=== PATIENT | female | born 1955 | race Caucasian/White ===

== ENCOUNTER → 2016-12-03 | Outpatient (CLI) | payer BC ==
--- NOTE | 2016-12-03 13:45 | DIAGNOSTIC IMAGING REPORT ---
LEFT RIBS UNILATERAL WITH PA CHEST CLINICAL HISTORY: LEFT POSTERIOR RIB PAIN pain COMPARISON STUDY: None FINDINGS: Cortical fracture left ninth rib. All remaining ribs are unremarkable. No evidence pneumothorax. IMPRESSION: Cortical fracture left ninth rib. Lungs are clear. Electronically signed by: Payam Castellon M.D. 12/03/2016 1:43 PM Dictated Date/Time: 12/03/2016 1:42 PM
--- NOTE | 2016-12-03 13:46 | DIAGNOSTIC IMAGING REPORT ---
LUMBAR SPINE 5 VIEWS HISTORY: Pain FLANK PAIN COMPARISON: None. FINDINGS: There is no fracture. No subluxation. Significant degenerative disc changes throughout. IMPRESSION: Significant degenerative disc change. No acute process. Electronically signed by: Payam Castellon M.D. 12/03/2016 1:44 PM Dictated Date/Time: 12/03/2016 1:44 PM
--- NOTE | 2016-12-03 13:46 | DIAGNOSTIC IMAGING REPORT ---
THORACIC SPINE 3 VIEWS HISTORY: Left FLANK PAIN COMPARISON: None. FINDINGS: There is no fracture. No subluxation. Minimal dextroscoliosis of the thoracic spine. Paraspinal soft tissues are unremarkable. Mild disc space narrowing within the mid to lower thoracic spine. There are flowing anterior osteophytes within the mid to lower thoracic spine. IMPRESSION: No fracture or subluxation within the thoracic spine. Mild degenerative disc disease. Electronically signed by: Trent Nayak M.D. 12/03/2016 1:45 PM Dictated Date/Time: 12/03/2016 1:43 PM
== END | disposition home or self-care (01) ==
LOC: C.RADBC 13:08
PROVIDERS: ATTEND Family Medicine
DX: R10.9 Unspecified abdominal pain (principal)

== ENCOUNTER → 2016-12-25 | Outpatient (CLI) | payer BC ==
--- NOTE | 2016-12-25 15:16 | DIAGNOSTIC IMAGING REPORT ---
LEFT RIBS UNILATERAL WITH PA CHEST CLINICAL HISTORY: Left rib pain. COMPARISON STUDY: Left rib series December 03, 2016. FINDINGS: No pneumothorax or pleural effusion is present. Opacity along the left heart border likely reflects atelectasis or epicardial fat pad. Cardiomediastinal silhouette is normal. The left ninth rib fracture shown on exam of December 03, 2016 is not well visualized on this exam. IMPRESSION: No pneumothorax. No acute left rib fractures identified. Electronically signed by: Abdullahi Stark M.D. 12/25/2016 3:15 PM Dictated Date/Time: 12/25/2016 3:10 PM
== END | disposition home or self-care (01) ==
LOC: C.RADBC 14:53
PROVIDERS: ATTEND Family Medicine
DX: S22.32XA Fracture of one rib, left side, initial encounter for closed fracture (principal); X58.XXXA Exposure to other specified factors, initial encounter

== ENCOUNTER → 2017-02-04 | Outpatient (CLI) | payer BC ==
[~2017-02-04] MED LIST: GADAVIST IV PRN
--- NOTE | 2017-02-04 12:22 | DIAGNOSTIC IMAGING REPORT ---
Brain MRI WITH AND WITHOUT CONTRAST HISTORY: Demyelinating disorder G35 Multiple [id number] TECHNIQUE: Multiplanar multisequence MRI of the brain was performed both before and after the intravenous administration of contrast. COMPARISON STUDY: None. FINDINGS: Diffusion-weighted images are unremarkable. There is no acute ischemic process. Findings of moderate generalized cerebellar as well as cerebral atrophy. There is slight compensatory prominence of the ventricular system. Postcontrast images are considered negative for an enhancing lesion. There are findings of a diffuse increase in signal the periventricular deep white matter regions. Smaller several foci are identified within the right as well as left temporal lobe regions. There is again negative for abnormal postcontrast enhancement. Sella and parasellar regions are unremarkable. IMPRESSION: 1. Findings suggestive of a combination of demyelinating disorder/multiple sclerosis, combined with superimposed cerebellar as well as cerebral atrophy. 2. As old studies are not available, comparison is possible. 3. No significant postcontrast enhancement. Electronically signed by: Payam Castellon M.D. 02/04/2017 12:21 PM Dictated Date/Time: 02/04/2017 12:18 PM
== END | disposition home or self-care (01) ==
LOC: C.MRIBC 10:35
PROVIDERS: ATTEND Psychiatry & Neurology Neurology
DX: G35 Multiple sclerosis (principal)